=== PATIENT | female | born 1995 | race Caucasian/White ===

== ENCOUNTER 2019-01-28 12:29 | Emergency (ER) | payer MEDICAID ==
[2019-01-28] MEDS: DEXAMETHASONE 10 MG/ML 1 ML INJ IM (13:26)
[2019-01-28] MEDS: FAMOTIDINE 20 MG TAB PO (13:26)
[2019-01-28] MEDS: DIPHENHYDRAMINE 50 MG CAP PO (13:26)
[2019-01-28] MEDS ORDERED: RANITIDINE 150 MG TAB PO (13:30)
== END 2019-01-28 15:04 | disposition home or self-care (01) ==
LOC: FTE 12:29
DX: L98.9 Disorder of the skin and subcutaneous tissue, unspecified (principal)
CPT/HCPCS: 96372; 99284-25